=== PATIENT | female | born 1950 | race Caucasian/White ===

== ENCOUNTER 2017-11-02 07:57 | Day surgery (SDC) | payer OTHER, MEDICARE ==
[2017-10-28 17:31] VITALS: BMI 25.0
[2017-11-02] MEDS ORDERED: PROPOFOL 20 ML ONE ×2 (08:01)
[2017-11-02] MEDS ORDERED: LIDOCAINE HCL/PF 2% SDV 5ML VIAL ONE (08:02)
[2017-11-02 08:21] VITALS: TEMP 97.9
[2017-11-02 10:06] VITALS: PULSE 64
[2017-11-02 10:26] VITALS: BP 122/74
== END 2017-11-02 10:30 | disposition home or self-care (01) ==
LOC: FASU-ENDO 07:57
PROVIDERS: ATTEND Internal Medicine Gastroenterology
PROC: 0DJD8ZZ Inspection of Lower Intestinal Tract, Via Natural or Artificial Opening Endoscopic (ICD-10-PCS; principal; 2017-11-02 09:29)
DX: Z86.010 Personal history of colon polyps (principal); Z80.0 Family history of malignant neoplasm of digestive organs; I10 Essential (primary) hypertension; H40.9 Unspecified glaucoma

== ENCOUNTER 2018-11-17 09:46 | Day surgery (SDC) | payer OTHER, MEDICARE ==
[2018-11-12 12:00] VITALS: BMI 25.0
[2018-11-17] MEDS: CIPROFLOXACIN 0.3% EYE DROPS 5 ML BOTTLE ONE ×3 (10:50→11:00)
[2018-11-17] MEDS: CYCLOPENTOLATE 2% OPHTH SOLN 2 ML BOTTLE ONE ×3 (10:50→11:00)
[2018-11-17] MEDS: PHENYLEPHRINE 2.5% OPHTH SOLN 15 ML BOTTLE ONE ×3 (10:50→11:00)
[2018-11-17] MEDS: TROPICAMIDE 1% OPHTH SOLN 15 ML BOTTLE ONE ×3 (10:50→11:00)
[2018-11-17] MEDS ORDERED: CARBACHOL 0.01% INTRA-OCULAR 1.5 ML VIAL ONE (11:39)
[2018-11-17] MEDS ORDERED: BSS (NA/CA/MG/K) BALANCED SALT SOLUTION OPHTH SOLN 15 ML BOTTLE ONE (11:39)
[2018-11-17] MEDS ORDERED: NEO/POLYMYX B SULF/DEXAMETH OPHTHALMIC 5ML BOTTLE ONE (11:39)
[2018-11-17] MEDS ORDERED: MIDAZOLAM HCL 2 MG/2 ML SINGLE DOSE VIAL ONE (11:42)
[2018-11-17] MEDS ORDERED: ACETAMINOPHEN 325 MG TABLET (FP) ONE (12:22)
--- NOTE | 2018-11-17 12:56 | OP ---
DATE OF OPERATION: 11/17/2018 OPERATIVE PROCEDURE: Lens phacoemulsification with posterior chamber intraocular lens placement, left eye. PREOPERATIVE DIAGNOSIS: Visually significant cataract of left eye. POSTOPERATIVE DIAGNOSIS: Visually significant cataract of left eye. SURGEON: Tyler Avilez MD ANESTHESIA: MAC. PROCEDURE: The patient was brought to the operating room and placed under monitored anesthesia care by Anesthesia. A drop of tetracaine was then placed over the left eye. The patient was then prepped and draped in the usual sterile manner. A speculum was then placed over the left eye. The eye was then well irrigated with copious amounts of BSS (balanced salt solution). The operating microscope was then moved into position. A paracentesis was performed using a 15-degree blade. At this point 0.5 mL of 1% preservative-free lidocaine was injected into the anterior chamber. Amvisc Plus was then injected into the anterior chamber. A clear corneal incision was then formed using a 2.2-mm keratome. A capsulorrhexis was then performed in a continuous circular fashion beginning with a cystotome, completed with an Utratas forceps. Hydrodissection was then performed using BSS on a cannula. The phaco probe was then introduced through the corneal wound and the cataract was removed using the phaco chop technique. Approximately 3 seconds of absolute phaco time was used. The remaining cortex was then removed using irrigation and aspiration with an I/A probe. The capsule was then filled with regular Amvisc and the capsule was noted to be intact. A previously selected foldable posterior chamber intraocular lens was then injected into the capsule through the corneal wound using a lens injector. It was then dialed into position using a Sinskey hook. The Amvisc was then removed using irrigation and aspiration. Miostat was then injected through the paracentesis to constrict the pupil. The paracentesis and corneal wound were then hydrated and noted to be watertight. A drop of Maxitrol was then placed over the eye. The speculum was removed and clear shield was taped over the eye. The patient tolerated the procedure well and there were no surgical complications. The patient was asked to follow up in my office the next day. TYLER AVILEZ M.D. [id number]
[2018-11-17 13:10] VITALS: TEMP 98.3
[2018-11-17 13:13] VITALS: BP 115/69; PULSE 78
== END 2018-11-17 13:20 | disposition home or self-care (01) ==
LOC: FASU 09:46
PROVIDERS: ATTEND Ophthalmology
PROC: 08RK3JZ Replacement of Left Lens with Synthetic Substitute, Percutaneous Approach (ICD-10-PCS; principal; 2018-11-17 11:56)
DX: H26.8 Other specified cataract (principal)

== ENCOUNTER 2022-01-15 16:55 | Emergency (ER) | payer OTHER, MEDICARE ==
[2022-01-15 17:09] VITALS: BP 155/100; PULSE 97; TEMP 99.1; BMI 25.7
== END 2022-01-15 18:41 | disposition home or self-care (01) ==
LOC: FER 16:55
DX: S09.90XA Unspecified injury of head, initial encounter (principal); W10.8XXA Fall (on) (from) other stairs and steps, initial encounter
CPT/HCPCS: 70450-TC; 70486-TC; 72125-TC; 73130-TC-RT-FY; 99284-25

== ENCOUNTER 2022-12-29 09:43 | Day surgery (SDC) | payer OTHER, MEDICARE ==
[2022-12-26 18:29] VITALS: BMI 24.0
[2022-12-29 10:07] VITALS: RESP 18
[2022-12-29] MEDS ORDERED: METOPROLOL TARTRATE 5 MG/5 ML VIAL ONE (11:13)
[2022-12-29 11:42] VITALS: TEMP 97.8
[2022-12-29 12:01] VITALS: BP 108/54; PULSE 67
== END 2022-12-29 12:12 | disposition home or self-care (01) ==
LOC: FASU-ENDO 09:43
PROVIDERS: ATTEND Internal Medicine Gastroenterology
PROC: 0DJD8ZZ Inspection of Lower Intestinal Tract, Via Natural or Artificial Opening Endoscopic (ICD-10-PCS; principal; 2022-12-29 11:15)
DX: Z12.11 Encounter for screening for malignant neoplasm of colon (principal); Z86.010 Personal history of colon polyps; Z80.0 Family history of malignant neoplasm of digestive organs; K64.0 First degree hemorrhoids

== ENCOUNTER 2023-01-30 20:19 | Emergency (ER) | payer OTHER, MEDICARE ==
[2023-01-30 20:28] VITALS: BP 104/66; PULSE 74; RESP 20; TEMP 97.3; BMI 25.7
[2023-01-30] MEDS ORDERED: ACETAMINOPHEN 325 MG TABLET (FP) ONE (21:25)
[2023-01-30] MEDS: ACETAMINOPHEN 500 MG TABLET (FP) PO ONE ×2 (21:47→21:52)
[2023-01-30] MEDS ORDERED: ACETAMINOPHEN 1000 MG/100 ML BAG IVPB ONE (21:51)
[2023-01-30] MEDS ORDERED: ACETAMINOPHEN INJECTION 100 ML IVPB ONE (22:02)
[2023-01-30 22:09] LABS: BASO % 0.7 % (0-2.0); EOS % 0.3 % (0-4.5); HEMATOCRIT 41.5 % (32.4-45.2); HEMOGLOBIN 14.2 GM/dL (10.7-15.3); LYMPH % 9.2 % (8-40); MCH 29.9 pg (25.7-33.7); MCHC 34.3 g/dl (32.0-36.0); MEAN PLT VOLUME 6.7 fl (7.5-11.1); MONO % 8.8 % (3.8-10.2); PLATELET COUNT 336 10^3/uL (134-434); RBC 4.77 M/mm3 (3.60-5.2); WHITE BLOOD COUNT 9.4 K/mm3 (4.0-10.0)
[2023-01-30 22:14] LABS: INR 1.04 (0.83-1.09); PROTHROMBIN TIME (PATIENT) 12.1 SEC (9.7-13.0)
[2023-01-30 22:17] LABS: ACTIVATED PTT 25.3 SECONDS (25.2-36.5)
[2023-01-30 22:27] LABS: POTASSIUM 4.7 mmol/L (3.5-5.1)
[2023-01-30 22:30] LABS: ALBUMIN 3.9 g/dl (3.4-5.0)
[2023-01-30 22:33] LABS: CREATININE 0.7 mg/dL (0.55-1.3)
[2023-01-30 22:35] LABS: BILIRUBIN,TOTAL 0.6 mg/dL (0.2-1)
== END 2023-01-30 23:08 | disposition home or self-care (01) ==
LOC: JER 20:19
PROC: 3E033GC Introduction of Other Therapeutic Substance into Peripheral Vein, Percutaneous Approach (ICD-10-PCS; principal; 2023-01-30)
DX: R51.9 Headache, unspecified (principal); M54.89 Other dorsalgia; W10.8XXA Fall (on) (from) other stairs and steps, initial encounter
CPT/HCPCS: 36415; 70450-TC; 71045-TC-FY; 72125-TC; 72170-TC-FY; 80053; 85025; 85610; 85730; 86850; 86900; 86901; 93005; 93010; 99285-25

== ENCOUNTER 2023-02-10 21:08 | Emergency (ER) | payer OTHER, MEDICARE ==
[2023-02-10 21:19] VITALS: BMI 23.6
[2023-02-10] MEDS ORDERED: ACETAMINOPHEN 325 MG TABLET (FP) PO ONE ×2 (22:56→23:02)
[2023-02-10] MEDS ORDERED: ACETAMINOPHEN 325 MG TABLET (FP) ONE ×2 (22:57→23:03)
[2023-02-11 00:52] VITALS: BP 157/86; PULSE 80; RESP 16; TEMP 97.5
== END 2023-02-11 01:48 | disposition home or self-care (01) ==
LOC: JER 21:08
PROC: 0HQ0XZZ Repair Scalp Skin, External Approach (ICD-10-PCS; principal; 2023-02-10)
DX: S01.01XA Laceration without foreign body of scalp, initial encounter (principal); W10.8XXA Fall (on) (from) other stairs and steps, initial encounter; Y93.01 Activity, walking, marching and hiking; Y92.038 Other place in apartment as the place of occurrence of the external cause
CPT/HCPCS: 70450-TC; 71101-TC-LT-FY; 71101-TC-RT-FY; 72125-TC; 99284-25

== ENCOUNTER 2023-02-19 10:54 | Emergency (ER) | payer OTHER, MEDICARE ==
[2023-02-19 11:05] VITALS: BP 114/79; PULSE 83; RESP 20; TEMP 97.8; BMI 23.3
== END 2023-02-19 11:30 | disposition home or self-care (01) ==
LOC: JERFT 10:54 → JER 10:54 → JERFT 11:30
DX: Z48.02 Encounter for removal of sutures (principal)
CPT/HCPCS: 99282-25